=== PATIENT | male | born 1990 | race Asian ===

== ENCOUNTER 2025-05-03 15:47 | Outpatient (AMB) | payer OTHER, SELFPAY ==
--- OUTSIDE RECORDS SUMMARY | 2025-05-03 15:50 | XMS_ITS | Clinical Summary ---
Author Organization [facility] [address] [place] [address] [place] [phone] Phone Care Team Providers Care Rental Agent Name Role Phone Tanika Faulkner MD Primary Care Provider [phone] Allergies Active Allergy Reactions Criticality Noted Date Comments Shellfish Derived Swelling 12/22/2013 Lips and throat Medications No known medications Active Problems Problem Noted Date Diagnosed Date Abnormal brain MRI 03/17/2025 Overview (03/17/2025): On evaluation of dizziness, MRI February 2025 : 1.6 x 1.8 x 1.2 cm intra-axial lesion with signal characteristics typical for a cavernous angioma Immunization series complete 03/15/2025 Overview (03/15/2025): Immunization record including anthrax typhoid yellow fever etc., for this personnel, see media section. 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 Balbuena Dyslipidemia 11/09/2024 Thrombocytosis 11/09/2024 COVID-19 virus infection 04/26/2022 Overview (08/26/2024): April 17, 2022, URI symptoms, vaccinated not boosted, symptom resolved with lingering cough, without specific treatment Encounters Date Type Department Care Team Description 03/16/2025 11:58 AM EDT - 03/16/2025 11:59 PM EDT Hospital Encounter Radiology Department - [address] [phone] scan of head Discharge Disposition: Home or Self Care 03/11/2025 8:13 AM EDT - 03/11/2025 11:59 PM EDT Hospital Encounter CT Scan - [address] [phone] Dizziness; Benign paroxysmal positional vertigo, unspecified laterality Discharge Disposition: Home or Self Care 03/09/2025 1:00 PM EDT Office Visit Adult Medicine [address] [phone] Tanika Faulkner MD Dizziness (Primary Dx); Benign paroxysmal positional vertigo, unspecified laterality; Thrombocytosis; Abnormal CT scan of head from Last 3 Months Immunizations Name Administration Dates Next Due Anthrax 03/14/2011,05/05/2009,01/22/2009 DTaP / Hib 12/28/2017 H1N1 Inj 09/10/2009 Hepatitis A-Hepatitis B Adul t (Twinrix) 18yo and older 03/09/2007,09/12/2006,07/18/2006 IPV Inactivated polio (Ipol) 6wks and older 09/12/2006 Influenza, Unspecified 08/04/2019 Frisian Encephalitis 11/13/2024,10/27/2024 MMR, measles mumps and rubel la Live (Priorix; M-M-R II) 12mo and older 07/18/2006 Meningococcal Polysaccharide 03/22/2011,07/03/20 06 Moderna SARS-CoV-2 COVID-19, mRNA, LNP-S, preservative free 11/27/2020,10/31/2020 Rabies, Unspecified 06/08/2011,05/02/2011,2010 Smallpox 06/16/2009 Td Tetanus diptheria (Tdvax) 7yo and older 07/09/2015,07/03/2006 Tdap Tetanus diptheria acell ular pertussis (Boostrix; Adacel) 7yo and older 12/28/2017 Typhoid, Unspecified 10/04/2024,11/05/19 11,10/31/2008,02/02 Yellow Fever Vaccine, Unspec ified Formulation 07/09/2015,09/12/2006 Surgical History Surgery Date Site/Laterality Comments OTHER SURGICAL HISTORY PROCEDURE: [place] ILEOSTOMY/JEJUNOSTOMY NON-TUBE; COMMENT: 3 months old HERNIA REPAIR PROCEDURE: HISTORICAL HERNIA REPAIR/UMB; COMMENT: 3 months old Medical History Medical History Date Comments Historical Medical DX 12/22/2013 DX:NO ACTI VE MEDICAL PROBLEMS Family History Medical History Relation Name Comments Breast cancer Mother Relation Name Status Comments Brother Alive Father Alive Maternal Grandfather (Age 60's) ? Maternal Grandmother Alive Mother Alive Paternal Grandfather ? Paternal Grandmother Alive Social History Tobacco Use Types Packs/Day Years Used Date Smoking Tobacco: Never Smokeless Tobacco: Never Alcohol Use Standard Drinks/Week Comments Yes 0 (1 standard drink = 0.6 oz pur e alcohol) Housing Instability Answer Date Recorde d Are you worried that in the next 2 months you may not have stable housing? No 11/08/2024 Food Access & Nutrition Answer Date Rec orded Do you have access to a vari ety of food including fruits and vegetables? Yes 11/08/2024 Access to Healthcare Answer Date Record ed Within the last 3 months, ho w many times did you visit the emergency department for your medical care? 0 11/08/2024 Health Literacy Answer Date Recorded How often do you need to hav e someone help you when you read instructions, pamphlets, or other written material from your doctor or pharmacy? Never 11/08/2024 Caregiver: How often do you need to have someone help you when you read instructions, pamphlets, or other written material from your doctor or pharmacy? Not on file 11/08/2024 Financial Risk Answer Date Recorded How hard is it for you to pa y for the very basics like food, housing, medical care, and air conditioning / heating? Not very hard 11/08/2024 Transportation Answer Date Recorded Has the lack of transportati on kept you from meetings, work, or from getting things needed for daily living? No Has the lack of transportati on kept you from medical appointments or from getting medications? No 11/08/2024 Social Isolation Answer Date Recorded How often do you feel lonely or isolated from th ose around you? Rarely 11/08/2024 Food Risk Answer Date Recorded Within the past 12 months we worried whether our food would run out before we got money to buy more. Never true 11/08/2024 Within the past 12 months th e food we bought just didn't last and we didn't have money to get more. Never true 11/08/2024 Dependent Care Answer Date Recorded Do you need help finding or paying for care for your loved ones. For example, children's aide or elderly care for an older adult? No 11/08/2024 Education Answer Date Recorded Do you think completing more education or training, like finishing a GED, going to college, or learning a trade, would be helpful for you? N/A 11/08/2024 Employment and Income Answer Date Recor ded During the last four weeks, have you been actively looking for work? No 11/08/2024 Living Situation Answer Date Recorded What is your living situation? 0 11/08/2024 Sex and Gender Information Value Date Recorded Sex Assigned at Not on file Legal Sex Male 9:52 PM EST Gender Identity Not on file Sexual Orientation Not on file Obstetrics History Last Filed Vital Signs Vital Sign Reading Time Taken Comments Blood Pressure 112/60 03/09/2025 1:06 PM EDT Pulse 88 03/09/2025 1:06 PM EDT Temperature 36.2 C (97.1 F) 03/09/2025 1:06 PM EDT Respiratory Rate 20 03/09/2025 1:06 PM EDT Oxygen Saturation - - Inhaled Oxygen Concentration - - Weight 78 kg (172 lb) 03/09/2025 1:06 PM EDT Height 177.8 cm (5' 10 ) 03/09/2025 1:06 PM EDT Body Mass Index 24.68 03/09/2025 1:06 PM EDT Plan of Treatment Upcoming Encounters Date Type Department Care Team (Late st Contact Info) Description 05/27/2025 11:00 AM EDT Office Visit Adult Medicine [facility] [place], [place] [address] [place] [phone] Tanika Faulkner MD [address] [place] [address] Health Maintenance Due Date Last Done Comments IPV Vaccines (2 of 3 - Adult catch-up series) 10/10/2006 09/12/2006 Hepatitis A Vaccines (2 of 2 - 2-dose series) 09/08/2007 03/09/2007, 09/12/2006, 07/18/2006 HIV Screening 09/01/2022 Hepatitis C Screening 09/01/2022 COVID-19 Vaccine ( - season) 2024 11/27/2020, 10/31/2020 Influenza Vaccine (#1) 2025 08/04/2019, 2008 Social Influencers of Health Screening 11/08/2025 11/08/2024 DTaP,Tdap,and Td Vaccines (5 - Td or Tdap) 12/29/2027 12/28/2017, 12/28/2017, 07/09/2015, Additional history exists Cholesterol Screening (Lipid Panel) 05/01/2028 05/01/2023 MMR Vaccines Completed 07/18/2006 Hepatitis B Vaccines Completed 03/09/2007, 09/12/2006, 07/18/2006 Meningococcal ACWY Vaccine Aged Out 03/22/2011, No longer eligible based on patient's age to complete this topic HIB Vaccines Aged Out 12/28/2017 No longer eligi ble based on patient's age to complete this topic Depression Screening Completed 11/08/2024 HPV Vaccines Aged Out No longer eligi ble based on patient's age to complete this topic Meningococcal B Vaccine Aged Out No l onger eligible based on patient's age to complete this topic Pneumococcal Vaccine: Pediatrics (0 to 5 Years) and At-Risk Patients (6 to 49 Years) Aged Out No longer eligible based on patient's age to complete this topic RSV Immunization Patients Under 20 months Aged Out No longer eligible based on patient's age to complete this topic Varicella Vaccines Aged Out No longer eligible based on patient's age to complete this topic Procedures Procedure Name Priority Date/Time Associated Diagnosis Comments MR BRAIN WO AND W CONTRAST Routine 03/16/2025 12:[address] scan of head CT HEAD WO CONTRAST Routine 03/11/2025 8 :31 AM EDT Dizziness Benign paroxysmal positional vertigo, unspecified laterality LIPID PANEL Routine 05/01/2023 from Last 3 Months or Most Recently Relevant to Health Maintenance Results * MR Brain wo and w Contrast (03/16/2025 12:49 PM EDT) Anatomical Region Laterality Modality Head and Neck Magnetic Resonan ce 03/16/2025 5:31 PM EDT Narrative 03/16/2025 5:46 PM EDT MRI of the head without and with intravenous contrast. History lesion in the left frontal lobe on CT scan of the head. Examination was performed on 1.5 Sylvia magnet without administration of intravenous contrast followed by postcontrast study after administration of 15 mL of DOTAREM. Head CT obtained on 03/11/2025 was reviewed. There is a 1.6 x 1.8 x 1.2 cm intra-axial mass in the right frontal lobe which revealed arm subcortical-like shape with some increased heterogeneous T1 and T2 signal centrally and narrowing of low signal intensity in the periphery. There is minimal central enhancement. There is area of corresponding magnetic susceptibility artifact. This findings is typical for cavernous angioma. No other vascular malformations identified. There is no evidence of midline shift, extra or intra-axial blood fluid collections. There is no other visible masses or mass effect in the brain and cerebellum. Ventricular system is symmetric and normal in size. Fourth ventricle and basal cisterns are midline and patent. There is no focal areas of restricted diffusion. Paranasal sinuses and mastoid processes are aerated. CONCLUSIONS: 1.6 x 1.8 x 1.2 cm intra-axial lesion with signal characteristics typical for a cavernous angioma. Follow-up in 6/12 months is recommended to establish stability. A copy of this report will be provided to the [facility] Program. -------- FINAL REPORT -------- Dictated By: Sandy Stiles Dictated Date: 03/16/2025 17:31 ET Assigned Physician: Sandy Stiles Reviewed and Electronically Signed By: Sandy Stiles Signed Date: 03/16/2025 17:46 ET Workstation ID: [id number] Transcribed By: Self Edit Transcribed Date: 03/16/2025 17:31 ET Procedure Note Sandy Stiles MD - 03/16/2025 MRI of the head without and with intravenous contrast. History lesion in the left frontal lobe on CT scan of the head. Examination was performed on 1.5 Sylvia magnet without administration ofintravenous contrast followed by postcontrast study after administrationof 15 mL of DOTAREM. Head CT obtained on 03/11/2025 was reviewed. There is a 1.6 x 1.8 x 1.2 cm intra-axial mass in the right frontal lobewhich revealed arm subcortical-like shape with some increasedheterogeneous T1 and T2 signal centrally and narrowing of low signalintensity in the periphery. There is minimal central enhancement. Thereis area of corresponding magnetic susceptibility artifact. This findingsis typical for cavernous angioma. No other vascular malformationsidentified. There is no evidence of midline shift, extra or intra-axial blood fluidcollections. There is no other visible masses or mass effect in the brainand cerebellum. Ventricular system is symmetric and normal in size. Fourthventricle and basal cisterns are midline and patent. There is no focalareas of restricted diffusion. Paranasal sinuses and mastoid processes are aerated. CONCLUSIONS: 1.6 x 1.8 x 1.2 cm intra-axial lesion with signalcharacteristics typical for a cavernous angioma. Follow-up in 6/12 monthsis recommended to establish stability. A copy of this report will beprovided to the [facility] [employer] Program. -------- FINAL REPORT -------- Dictated By: Sandy Stiles Dictated Date: 03/16/2025 17:31 ET Assigned Physician: Sandy Stiles Reviewed and Electronically Signed By: Sandy Stiles Signed Date: 03/16/2025 17:46 ET Workstation ID: [id number] Transcribed By: Self Edit Transcribed Date: 03/16/2025 17:31 ET us Tanika Faulkner MD IMG MRI PROCEDURES Final Result * CT Head wo Contrast (03/11/2025 8:31 AM EDT) Anatomical Region Laterality Modality Head and Neck Computed Tomogra phy 03/11/2025 8:43 AM EDT Impressions 03/11/2025 9:09 AM EDT Hyperdense partially calcified left frontal lesion. Difficult to determine if intra-axial or extra-axial on today's images. Recommend brain MRI with intravenous contrast for better characterization. Presence of abnormal finding was communicated via secure message system to the ordering provider Dr. Tariq Faulkner at the time of this report. Read confirmation and acknowledgment received promptly. A copy of this report will be provided to the [facility] [employer] Program. -------- FINAL REPORT -------- Dictated By: Felipe Cervantes Dictated Date: 03/11/2025 08:43 ET Assigned Physician: Felipe Cervantes Reviewed and Electronically Signed By: Felipe Cervantes Signed Date: 03/11/2025 09:09 ET Workstation ID: [id number] Transcribed By: Self Edit Transcribed Date: 03/11/2025 08:43 ET Narrative 03/11/2025 9:[address] HEAD WO CONTRAST TECHNIQUE: Multidetector-row CT of the head was performed without intravenous contrast. Images were reconstructed in the axial, coronal, and sagittal planes. COMPARISON: None HISTORY: dizziness FINDINGS: Brain Parenchyma: There is an approximately 1.6 cm hyperdense lesion in the left frontal region, associated with minimal internal calcification (2:13); difficult to evaluate if intra or extra-axial on today's images. No shift of midline structures. No evidence of acute territorial infarct. Ventricular System and Extra-Axial Spaces: Above described left frontal hyperdense lesion, unclear if intra-axial or extra-axial. No extra-axial fluid collection. No hydrocephalus. Extracranial Structures: Paranasal sinuses and mastoid air cells are clear. Procedure Note Felipe Cervantes MD - 03/11/2025 CT HEAD WO CONTRAST TECHNIQUE: Multidetector-row CT of the head was performed withoutintravenous contrast. Images were reconstructed in the axial, coronal, andsagittal planes. COMPARISON: None HISTORY: dizziness FINDINGS: Brain Parenchyma: There is an approximately 1.6 cm hyperdense lesion inthe left frontal region, associated with minimal internal calcification(2:13); difficult to evaluate if intra or extra-axial on today's images.No shift of midline structures. No evidence of acute territorial infarct. Ventricular System and Extra-Axial Spaces: Above described left frontalhyperdense lesion, unclear if intra-axial or extra-axial. No extra-axialfluid collection. No hydrocephalus. Extracranial Structures: Paranasal sinuses and mastoid air cells areclear. IMPRESSION: Hyperdense partially calcified left frontal lesion. Difficult to determineif intra-axial or extra-axial on today's images. Recommend brain MRI withintravenous contrast for better characterization. Presence of abnormal finding was communicated via secure message system tot ordering provider Dr. Tariq Faulkner at the time of this report. Readconfirmation and acknowledgment received promptly. A copy of this report will be provided to the [facility] [employer]. -------- FINAL REPORT -------- Dictated By: Felipe Cervantes Dictated Date: 03/11/2025 08:43 ET Assigned Physician: Felipe Cervantes Reviewed and Electronically Signed By: Felipe Cervantes Signed Date: 03/11/2025 09:09 ET Workstation ID: [id number] Transcribed By: Self Edit Transcribed Date: 03/11/2025 08:43 ET Tanika Faulkner MD IMG CT PROCEDURES Final Result * (ABNORMAL) Lipid panel (05/01/2023) LDL/HDL Ratio 5(A) 0 - 4 Triglycerides 254(A) 0 - 150 mg/dL Cholesterol 196 0 - 200 mg/dL HDL 36(A) >=40 mg/dL LDL Cholesterol 110(A) 0 - 100 mg/dL Blood Venous blood specimen / Unknown Historical Provider LAB BLOOD ORDERABLES Megan portillo Result from Last 3 Months or Most Recently Relevant to Health Maintenance Insurance [employer] on file Care Teams Rental Agent Relationship Specialty Start Date End Date Tanika Faulkner MD [address] [place] [address] PCP - General Internal Medicine 02/19/19
--- OUTSIDE RECORDS SUMMARY | 2025-05-03 15:50 | XMS_ITS | Clinical Summary ---
Author Organization [facility] Address [address] [place] [phone] Phone Care Team Providers Care Global Chief Experience Officer Name Role Phone Tanika Faulkner MD Primary Care Provider [phone] Social History Tobacco Use Types Packs/Day Years Used Date Smoking Tobacco: Never Assessed Education Answer Date Recorded Are you interested in more education? Not on alicia e 09/12/2023 Are you concerned about learning? Not on file 09/12/2023 No 09/12/2023 No 09/12/2023 Digital Access Answer Date Recorded No 09/12/2023 No 09/12/2023 Reliable internet access at home? Not on file 09/12/2023 Device with a working camera? Not on file Sex and Gender Information Value Date Recorded Sex Assigned at Not on file Legal Sex Male 1:35 PM EST Gender Identity Not on file Sexual Orientation Not on file Plan of Treatment Not on file Medical Devices Not on file Insurance [facility] Address: [facility] [id number] [place] [phone] [facility] Address: [address] [place] [address] Care Teams Global Chief Experience Officer Relationship Specialty Start Date End Date Tanika Faulkner MD [address] [place] [address] PCP - General Internal Medicine 09/12/23 Additional Source Comments The information contained in this document represents components of the legal health record. It is not the complete legal health record.[facility]
--- NOTE | 2025-05-03 16:16 | MHC.OFFVIS ---
Intake Visit Reasons: Dizziness Allergies shellfish derived Allergy (Unknown, Verified 04/27/25 12:50) Unknown HPI Comments Details: The patient is a 35-year-old male presenting with vertigo, which began after a mission trip to [facility] where he contracted an upper respiratory infection. According to field medics, this infection was believed to affect a cranial nerve, resulting in vertigo described as a heavy spinning sensation without nausea. The vertigo occurs primarily upon lying down on the right side or looking down for extended periods. The major symptoms initially lasted about a month but have now improved to short episodes of a few seconds duration. During subsequent imaging studies, a cavernous angioma was identified in the front right portion of his brain, although it is not considered to be the direct cause of his symptoms. Positional factors seem to exacerbate the vertigo, and it is suspected to be benign positional vertigo rather than a primary ear infection or inflammation. 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 [facility] Medical History (Updated 05/03/25 @ 16:34 by Aliya Argueta MD) Dizziness Family History (Updated 04/27/25 @ 12:50 by Tadeo Pearl CMA) Mother Breast cancer Review of Systems Const Details: - Neurological: Reports significant spinning sensation (vertigo), lasting a few seconds, positional in nature. Denies headache, confusion, or loss of consciousness. - Auditory: Denies fullness or pressure in the ears. Physical Exam Neuro Other: Mental Status: Alert and oriented to person, place, and time. Normal attention. Normal spontaneous speech, fluency, and comprehension. No obvious issues with mood and memory. Affect is appropriate. Cranial Nerves: CN II: Visual nielsen full to confrontation, visual acuity intact. CN III, IV, : Pupils equal, round, reactive to light and accommodation. Extraocular movements are normal. CN V: Facial sensation is normal. CN VII: Facial movements symmetrical. CN VIII: Hearing intact to bedside conversation is normal. Tympanic membranes were normal. CN IX, X: Palate elevates symmetrically. CN XI: Shoulder shrug and head turn symmetrical. CN XII: Tongue midline without atrophy or fasciculations. Hallpike test was negative. Motor: Bulk and tone normal in all extremities. No significant muscle weakness in arms and legs. No drift. Reflexes: Deep tendon reflexes 2+ and symmetric. Plantar response down-going bilaterally. Coordination: [id number] and [id number] testing normal. No dysmetria. Gait and Station: No obvious gait abnormality. No ataxia or instability. Extrapyramidal: Full facial expressions and blinking. No rigidity. Movements are appropriate with no tremor or abnormality. Speech: Normal; no dysarthria or tremor. Assessment & Plan Assessment & Plan (1) Benign positional vertigo: Comment: I discussed with the patient the findings of benign positional vertigo, differentiating it from the identified cavernous angioma which appears unrelated to his vertigo symptoms. I emphasized the mechanical nature of his vertigo, likely influenced by occupational noise exposure. We discussed common sense precautionary measures to reduce viral and noise exposure. The management plan does not include pharmacological treatment but recommends strategies to avoid provoking vertigo symptoms. The patient was advised to return with the MRI CD for a detailed review of the angioma, aiming to rule out any risks, notably the potential for causing epilepsy. I provided reassurance about the non-urgent nature of his condition and affirmed the need for diligent follow-ups if symptoms escalate or change. Code(s): H81.10 - Benign paroxysmal vertigo, unspecified ear Category: Medical Qualifiers: Laterality: unspecified laterality Qualified Code(s): H81.10 - Benign paroxysmal vertigo, unspecified ear Plan Impression: 1. History of probably vestibular neuritis when he was [place] and suffering from a viral syndrome. 2. Present symptoms of vertigo her more consistent with benign paroxysmal positional type of vertigo 3. Abnormal brain MRI apparently revealing a cavernous angioma Recommendations: 1. Reassurance and education 2. He was advised to bring CTA of his brain scans for review Coding Level of Care Code Est Pt Level 5 (62779) Diagnoses Benign paroxysmal positional vertigo, unspecified laterality H81.10 Laterality: unspecified laterality
== END 2025-05-03 16:34 | disposition home or self-care (01) ==
LOC: HO.HSM 15:48
PROVIDERS: PCP Internal Medicine; Referring Provider Internal Medicine; Visit Provider Psychiatry & Neurology Neurology
DX: H81.10 Benign paroxysmal vertigo, unspecified ear (principal)
CPT/HCPCS: 99213

== ENCOUNTER → 2025-05-03 15:47 | Outpatient (BNVA) | payer OTHER, SELFPAY | PROVIDERS: PCP Internal Medicine; Referring Provider Internal Medicine; Visit Provider Psychiatry & Neurology Neurology | DX: H81.10 Benign paroxysmal vertigo, unspecified ear (principal); D18.09 Hemangioma of other sites | CPT/HCPCS: 99212 ==

== ENCOUNTER 2025-05-12 11:39 | Outpatient (AMB) | payer OTHER, SELFPAY ==
--- NOTE | 2025-05-12 11:57 | A.OFFVIS_ITS ---
Intake Visit Reasons: mri review Allergies shellfish derived Allergy (Unknown, Verified 04/27/25 12:50) Unknown HPI Comments Details: The patient is a 35-year-old male with vertigo, which began after a mission trip to [facility] where he contracted an upper respiratory infection. The vertigo occurs primarily upon lying down on the right side or looking down for extended periods. The major symptoms initially lasted about a month but have now improved to short episodes of a few seconds duration. 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 He is presenting for consultation on his known cavernous angioma. He experiences episodes mainly in the mornings, which he describes as possibly related to seizure activity. These episodes are associated with extended periods of lying down overnight. This congenital condition was identified as a potential trigger for epilepsy, although it has yet to produce significant complications requiring intervention. Presently, the condition shows no signs of progressive symptomatology but requires annual radiological monitoring. 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 He is conscientious about avoiding alcohol and ensuring a consistent sleep schedule to mitigate any risk factors. His clinical management strategy focuses on careful observation with periodic imaging. [facility] Medical History (Updated 05/12/25 @ 12:06 by Aliya Argueta MD) Dizziness Family History (Updated 04/27/25 @ 12:50 by Tadeo Pearl CMA) Mother Breast cancer Review of Systems Const Details: - Neurological: Reports episodes mostly occurring in the morning after lying down overnight. - Occupational Exposure: Reports frequent exposure to blast overpressure due to his occupation as a electronic lab technician. - Lifestyle: Denies alcohol use, maintains regular sleep patterns. Physical Exam Neuro Other: Mental Status: Alert and oriented to person, place, and time. Normal attention. Normal spontaneous speech, fluency, and comprehension. No obvious issues with mood and memory. Affect is appropriate. Cranial Nerves: CN II: Visual nielsen full to confrontation, visual acuity intact. CN III, IV, : Pupils equal, round, reactive to light and accommodation. Extraocular movements are normal. CN V: Facial sensation is normal. CN VII: Facial movements symmetrical. CN VIII: Hearing intact to bedside conversation is normal. CN IX, X: Palate elevates symmetrically. CN XI: Shoulder shrug and head turn symmetrical. CN XII: Tongue midline without atrophy or fasciculations. Extrapyramidal: Full facial expressions and blinking. No rigidity. Movements are appropriate with no tremor or abnormality. Speech: Normal; no dysarthria or tremor. Assessment & Plan Assessment & Plan (1) Benign positional vertigo: Code(s): H81.10 - Benign paroxysmal vertigo, unspecified ear Category: Medical Qualifiers: Laterality: unspecified laterality Qualified Code(s): H81.10 - Benign paroxysmal vertigo, unspecified ear (2) Cavernous angioma: Code(s): D18.00 - Hemangioma unspecified site Category: Medical Plan Impression: a: BPPV, stable at this time b: A good sized left frontal cortical lesion, pobably a cavernous angioma, asymptomatic Rec: a: Education about angioma b: At least one repeat MRI w/o cont in February 2026 c: If angioma will cause a problem, like seizure disorder, an antiepileptic should be started d: I am not sure if it has any implication for his job except that it is a lesion that potentially can cause stroke like symptoms or a seizure. Appropriate precautions are advised such as avoiding alcohol, drugs of abuse, having regular sleep, and avoiding stress. Coding Level of Care Code Est Pt Level 4 (77035) Diagnoses Benign paroxysmal positional vertigo, unspecified laterality H81.10 Laterality: unspecified laterality Cavernous angioma D18.00
--- OUTSIDE RECORDS SUMMARY | 2025-05-12 12:58 | XMS_ITS | Clinical Summary ---
Author Organization [facility] [address] [place] [address] [place] [phone] Phone Care Team Providers Care Dispatch Officer Name Role Phone Tanika Faulkner MD Primary Care Provider [phone] Allergies Active Allergy Reactions Criticality Noted Date [...] PM EDT Hospital Encounter Radiology Department - [address] [phone] scan of head Discharge Disposition: Home or Self Care 03/11/2025 8:13 AM EDT - 03/11/2025 11:59 PM EDT Hospital Encounter CT Scan - [address] [phone] Dizziness; Benign paroxysmal positional vertigo, unspecified laterality Discharge Disposition: Home or Self Care 03/09/2025 1:00 PM EDT Office Visit Adult Medicine [address] [phone] Tanika Faulkner MD Dizziness (Primary Dx); Benign paroxysmal positional vertigo, unspecified laterality; Thrombocytosis; Abnormal CT scan of head from Last 3 Months Immunizations Name Administration Dates Next Due Anthrax 03/14/2011,05/05/2009,01/22/2009 DTaP / Hib 12/28/2017 H1N1 Inj 09/10/2009 Hepatitis A-Hepatitis B Adul t (Twinrix) 18yo and older 03/09/2007,09/12/2006,07/18/2006 IPV Inactivated polio (Ipol) 6wks and older 09/12/2006 Influenza, Unspecified 08/04/2019 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 For example, child attendant or elderly care for an older adult? [...] AM EDT Office Visit Adult Medicine [facility] [address] [place] [address] Tanika Faulkner MD [address] [place] [address] Health Maintenance Due Date Last Done Comments [...] this report will be provided to the [facility] FIND Program. -------- FINAL REPORT -------- Dictated By: Sandy Stiles Dictated Date: 03/16/2025 17:31 ET Assigned Physician: Sandy Stiles Reviewed and Electronically Signed By: Sandy Stiles Signed Date: 03/16/2025 17:46 ET Workstation ID: [id number] Transcribed By: Self Edit Transcribed Date: 03/16/2025 [...] of this report will beprovided to the [facility] Program. -------- FINAL REPORT -------- Dictated By: Sandy Stiles Dictated Date: 03/16/2025 17:31 ET Assigned Physician: Sandy Stiles Reviewed and Electronically Signed By: Sandy Stiles Signed Date: 03/16/2025 17:46 ET Workstation ID: [id number] Transcribed By: Self Edit Transcribed Date: 03/16/2025 [...] this report will be provided to the [facility] Program. -------- FINAL REPORT -------- Dictated By: Felipe Cervantes Dictated Date: 03/11/2025 08:43 ET Assigned Physician: Felipe Cervantes Reviewed and Electronically Signed By: Felipe Cervantes Signed Date: 03/11/2025 09:09 ET Workstation ID: [id number] Transcribed By: Self Edit Transcribed Date: 03/11/2025 [...] report will be provided to the [facility]. -------- FINAL REPORT -------- Dictated By: Felipe Cervantes Dictated Date: 03/11/2025 08:43 ET Assigned Physician: Felipe Cervantes Reviewed and Electronically Signed By: Felipe Cervantes Signed Date: 03/11/2025 09:09 ET Workstation ID: [id number] Transcribed By: Self Edit Transcribed Date: 03/11/2025 [...] Most Recently Relevant to Health Maintenance Insurance [facility] on file Care Teams Dispatch Officer Relationship Specialty Start Date End Date Tanika Faulkner MD [address] [place] [address] PCP - General Internal Medicine 02/19/19
--- OUTSIDE RECORDS SUMMARY | 2025-05-12 12:58 | XMS_ITS | Clinical Summary ---
Author Organization [facility] Address [address] [place] [phone] Phone Care Team Providers Care Technical Support Analyst Name Role Phone Tanika Faulkner MD Primary Care Provider [phone] Social History Tobacco Use Types Packs/Day Years [...] file Medical Devices Not on file Insurance [facility] Address: [facility] [id number] [place] [phone] [facility] Address: [address] [place] [address] Care Teams Technical Support Analyst Relationship Specialty Start Date End Date Tanika Faulkner MD [address] [place] [address] PCP - General Internal Medicine 09/12/23 Additional Source Comments The information contained in this document represents components of the legal health record. It is not the complete legal health record.[facility]
== END 2025-05-12 12:13 | disposition home or self-care (01) ==
LOC: HO.HSM 11:40
PROVIDERS: PCP Internal Medicine; Visit Provider Psychiatry & Neurology Neurology
DX: H81.10 Benign paroxysmal vertigo, unspecified ear (principal); D18.00 Hemangioma unspecified site
CPT/HCPCS: 99214

== ENCOUNTER → 2025-05-12 11:39 | Outpatient (BNVA) | payer OTHER, SELFPAY | PROVIDERS: PCP Internal Medicine; Visit Provider Psychiatry & Neurology Neurology | DX: H81.10 Benign paroxysmal vertigo, unspecified ear (principal); D18.00 Hemangioma unspecified site | CPT/HCPCS: 99212 ==